=== PATIENT | female | born 1960 | race Caucasian/White ===

== ENCOUNTER → 2018-08-06 14:52 | Outpatient (CLI) | payer OTHER, SELFPAY ==
[2018-07-28 15:11] VITALS: BMI 43.0
--- NOTE | 2018-08-06 14:54 | CT_ITS ---
STUDY: CT ABDOMEN AND PELVIS WITH CONTRAST REASON FOR EXAM: Female, 57 years old. Umbilical hernia. RADIATION DOSAGE (If Supplied By Facility): CTDIvol = ( 17.07 ) mGy, DLP = ( 1324.88 ) mGycm TECHNIQUE: Transaxial images were obtained from the dome of the diaphragm to the symphysis pubis without oral contrast. 100CC IV/Oral Isovue 300 was administered. Sagittal and coronal images were reconstructed. Individualized dose optimization techniques were used for this CT. COMPARISON: None. FINDINGS: There is a 3.9 mm faint nodule with the right middle lobe. There is minimal atelectasis and/or scarring within the lingula and right middle lobe. The visualized portions of the heart are within normal limits. There is decreased attenuation of the liver consistent with steatosis. There is hepatomegaly. There are surgical clips in the gallbladder fossa consistent with a prior cholecystectomy. There is a well-circumscribed low-attenuation 1.2 cm rounded focus within the spleen. Normal pancreas. Normal bilateral adrenal glands. Normal right kidney. Normal left kidney. Normal visualized stomach. Normal small intestine. Normal colon. The appendix is visualized and appears normal. Normal abdominal aorta. Normal inferior vena cava. Normal retroperitoneum. Normal urinary bladder. There is a fat-containing ventral hernia within the right upper abdomen measuring 2.7 cm in the transverse dimension by 2.2 cm in the craniocaudal dimension. There is an additional smaller infraumbilical fat-containing hernia visualized as well. In addition, there is a small fat-containing umbilical hernia. There are mild diffuse degenerative changes of the visualized lumbar spine. CT/Abdomen/Pelvis WITH Contrast IMPRESSION: Fat-containing 2.7 x 2.2 cm right upper abdomen ventral hernia. There are additional smaller umbilical and infraumbilical fat-containing hernias. Fatty infiltration of the liver associated with hepatomegaly. Indeterminate 1.2 cm low-attenuation focus within the spleen which may reflect underlying hemangioma or cyst. Electronically Signed: Shawna Shea MD at 16:02 EDT Tel , Service support ,
== END ==
PROVIDERS: Family Provider Family Medicine; PCP Family Medicine; Referring Provider Surgery; Visit Provider Surgery
DX: K43.9 Ventral hernia without obstruction or gangrene (principal); K42.9 Umbilical hernia without obstruction or gangrene
CPT/HCPCS: 74177; Q9967

== ENCOUNTER → 2018-08-29 07:30 | Outpatient (CLI) | payer OTHER, SELFPAY ==
--- NOTE | 2018-08-29 07:30 | LES_PTH ---
PATIENT: ALETHA SUN LOC: [facility] U#:[id number] AGE/SX: 64/F ROOM: RE08/29/[address]: Dr. Solomon Salinas MD : 1960 BED: DIS: SPEC #: [id number] RECD: 08/31/18 07:22 STATUS: PHILIP BERENICE #: [id number] SHAHID: 08/29/18 07:[address]: Solomon Salinas DEPT: SURGICAL PATHOLOGY RECD BY: Adelfo Streeter ENTERED: 08/31/18 14:42 SP TYPE: Lesion OTHR DR: Dr. Kavitha Martinez, DO Tissues: Skin of buttock, NOS Procedures: Surgery Specimen Level IV HEADER OPERATION: Excision right buttock lesion PRE-OP DIAGNOSIS: Uncertain neoplasm buttock TISSUE SUBMITTED: Right buttock tissue MICROSCOPIC DIAGNOSIS Skin lesion of right buttocks, biopsy: Compound nevus with pigment incontinence. See comment. AM:cat 09/01/18 COMMENT The lesion appears to have been completely excised in the planes examined. Case has been reviewed in consultation with Dr. Pollock who concurs with the above diagnosis. IDC:GRECIA MICROSCOPIC DESCRIPTION Slides are reviewed. GROSS DESCRIPTION Received in fixative is one container labeled with the patient's name and designated right buttock. The specimen consists of a piece of antonio-white skin with underlying tissue measuring 2 x 1 cm and up to 1.3 cm in thickness. There is a brown oval lesion on the surface measuring 0.5 x 0.1 cm. The specimen is inked, serially sectioned and submitted entirely in two cassettes. Cassette 1 contains the tips of skin ellipse. / GRECIA:cat 08/31/18 TC:5 CPT: 02194
[2018-08-29 07:33] VITALS: BMI 43.0
== END ==
PROVIDERS: Family Provider Family Medicine; PCP Family Medicine; Referring Provider Surgery; Visit Provider Surgery
DX: D48.5 Neoplasm of uncertain behavior of skin (principal)
CPT/HCPCS: 88305

== ENCOUNTER 2019-02-22 10:54 | Observation (INO) | payer OTHER, SELFPAY ==
[2018-09-04 10:20] VITALS: BMI 43.0
[2019-02-15 13:56] VITALS: BMI 43.0
[2019-02-15 14:36] LABS: Hematocrit 44.1 % (37-47); Hemoglobin 14.4 g/dL (12.0-15.0); Mean Corp Hgb Conc 32.7 g/dL (32-36); Mean Corpuscular Hgb 31.6 pg (27.0-32.0); Mean Corpuscular Volume 96.9 fL (81-99); Mean Platelet Vol. 10.6 fl (6.2-12.0); Platelet Count 163 K/mm3 (150-450); RBC Distribution Width CV 12.9 % (11.6-14.6); RBC Distribution Width SD 45.9 fl (35.1-43.9); Red Blood Count 4.55 M/mm3 (4.2-5.4)
[2019-02-15 14:49] LABS: Anion Gap 4 (5-15); BUN 11 mg/dL (7-18); BUN/Creat Ratio 11.7 RATIO (10-20); Calcium,Total 8.5 mg/dL (8.5-10.1); Chloride 102 mmol/L (98-107); Creatinine, Serum 0.94 mg/dL (0.55-1.02); EST Glomerular Filtration Rate 65 mL/min (>60); Est Glom Filt Rate - Afr Amer 79 mL/min (>60); Glucose 326 mg/dL (74-106); Potassium 3.6 mmol/L (3.5-5.1); Sodium Level 138 mmol/L (136-145)
--- NOTE | 2019-02-16 08:26 | HP_ITS ---
ADDENDUM by Tatianna Barry PA-C on 02/16/19 at 0859 Addendum entered and electronically signed by Tatianna Barry PA-C 02/16/19 08:59: Patient had PAT labs and patient's glucose returned in the 300's. Patient's PCP office was contacted and patient will be evaluated by her PCP today to assist with correcting her glucose today. At this time we will continue with the surgery as planned. It is a possibility that the surgery may be canceled if her glucose is not well controlled. Will need to repeat glucose lab on . Intake Chief Complaint: excision right buttock lesion/ discuss CT Allergies oxycodone [From Percocet] Adverse Reaction (Verified 02/15/19 14:00) Nausea Medications atorvastatin 10 mg tablet 10 mg PO DAILY 05/09/18 [History Confirmed 02/15/19] hydrochlorothiazide 12.5 mg capsule 12.5 mg PO DAILY 05/09/18 [History Confirmed 02/15/19] multivit with dhxekeib-sedc-LU-lutein 8 mg iron-400 mcg-300 mcg tablet 1 tab PO DAILY 05/09/18 [History Confirmed 02/15/19] ramipril 10 mg capsule 10 mg PO DAILY 05/09/18 [History Confirmed 02/15/19] sertraline 50 mg tablet 50 mg PO DAILY 05/09/18 [History Confirmed 02/15/19] metformin 1,000 mg tablet 1,000 mg PO BID 07/28/18 [History Confirmed 02/15/19] pioglitazone 45 mg tablet 45 mg PO DAILY 07/28/18 [History Confirmed 02/15/19] Albuterol Inhaler [Ventolin Hfa (SP)] 1 - 2 puff INHALATION Q6H PRN PRN 02/15/19 [History Confirmed 02/15/19] doxycycline hyclate 100 mg capsule 100 mg PO BID cap 02/15/19 [History Confirmed 02/15/19] glipizide 10 mg tablet 10 mg PO ONCE tab 02/15/19 [History Confirmed 02/15/19] Assessment & Plan Problems 1. Incisional hernia, without obstruction or gangrene K43.2 2. Recurrent incisional hernia with incarceration K43.0 Plan - GALDINO Pat Dr. will plan to perform an open incisional umbilical hernia repair with mesh. Possible conversion to laparoscopic approach for recurrent incarcerated ventral incisional hernia in right upper quadrant repair with mesh. Procedure details, risks and benefits have been reviewed with the patient. Patient has had the opportunity to ask and have questions answered. Patient verbally understands and agrees with the plan. 02/16/19 0859 <Electronically signed by Tatianna stark PA-C> Date _ Tatianna Barry PA-C cc: Kavitha Martinez, DO ~* Signed Intake Vital Signs 02/15/19 Height 5 ft 7 in 02/15/19 Weight: 250 lb 02/15/19 BMI 39.1 02/15/19 BP 151/98 H 02/15/19 Blood Pressure Location Rt brachial 02/15/19 Position Sitting 02/15/19 Respiration 16 02/15/19 Pulse 101 H 02/15/19 Pulse Source Monitor 02/15/19 Temp 98.5 F 02/15/19 Temp Source Oral 02/15/19 Pulse Oximetry (%) 99 02/15/19 Oxygen Delivery Method room air Intake Visit Reasons: Update H/P Hernia Surgery RC 02/22 Cvir Tech Required: No Is patient in pain?: No Allergies oxycodone [From Percocet] Adverse Reaction (Verified 02/15/19 14:00) Nausea Medications atorvastatin 10 mg tablet 10 mg PO DAILY 05/09/18 [History Confirmed 02/15/19] hydrochlorothiazide 12.5 mg capsule 12.5 mg PO DAILY 05/09/18 [History Confirmed 02/15/19] multivit with rajrraqy-exqm-WG-lutein 8 mg iron-400 mcg-300 mcg tablet 1 tab PO DAILY 05/09/18 [History Confirmed 02/15/19] ramipril 10 mg capsule 10 mg PO DAILY 05/09/18 [History Confirmed 02/15/19] sertraline 50 mg tablet 50 mg PO DAILY 05/09/18 [History Confirmed 02/15/19] metformin 1,000 mg tablet 1,000 mg PO BID 07/28/18 [History Confirmed 02/15/19] pioglitazone 45 mg tablet 45 mg PO DAILY 07/28/18 [History Confirmed 02/15/19] Albuterol Inhaler [Ventolin Hfa (SP)] 1 - 2 puff INHALATION Q6H PRN PRN 02/15/19 [History Confirmed 02/15/19] doxycycline hyclate 100 mg capsule 100 mg PO BID cap 02/15/19 [History Confirmed 02/15/19] glipizide 10 mg tablet 10 mg PO ONCE tab 02/15/19 [History Confirmed 02/15/19] PFSH Medical History Morbid obesity (Acute) Nevus (Acute) Herpes zoster (Acute) Recurrent incisional hernia with incarceration (Acute) Arthritis (Acute) Depression with anxiety (Acute) Diabetes (Acute) Diarrhea (Acute) Difficulty balancing (Acute) Fatigue (Acute) Headache (Acute) Incisional hernia (Acute) Knee pain (Acute) Shortness of breath (Acute) Shoulder pain (Acute) history of heel spurs (Acute) unexplained bruising (Acute) Chronic neck and back pain (Chronic) Hypertension (Chronic) Surgical History History of delivery (Acute) History of cholecystectomy (Acute) History of endometrial ablation (Acute) History of tubal ligation (Acute) Family History Mother Diabetes Father Heart disease Social History (Updated 02/16/19 @ 08:38 by Tatianna Barry PA-C) Smoking Status: Never smoker alcohol intake: never substance use type: does not use HPI HPI HPI: ALETHA SUN, is a 58 F who presents to the office today for HPI HPI Surgical H&P: Yes HPI: ALETHA SUN, is a 58 F who presents to the office today for an update history and physical. Patient notes she has had a recent sinus infection and was treated with doxycycline for 7 days. She denies recent hospitalization. She denies nausea, vomiting or schneider in bowel habits. She denies previous cardiac history or pulmonary history. She notes nausea after anesthesia. Patient notes intermittent pain with hernias. 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 Patient's previous history per Dr. Salinas: ALETHA SUN, is a 58 F who presents to the office today for surgical follow-up regarding treatment for herpes zoster and excision of a deeply pigmented skin lesion right posterior buttock and review of her CT scan for recurrent right upper quadrant incisional hernia with incarceration and a umbilical hernia. My previous office notes reflect the previous history HPI: ALETHA SUN, is a 57 F who presents to the office today for surgical consultation regarding what is suspected to be of recurrent right upper quadrant incisional hernia. The patient states that 1993 she had a lap scopic cholecystectomy. At some time subsequent to that in the epigastric right upper quadrant area she developed a hernia. She stated that perhaps in the year 1999 Dr. Alea Turner performed to repair this and the patient remembers that mesh was utilized. 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 She states that she recognized a bulge for years ago. But more recently now she with lifting and straining she has been having a burning type of pain. She states that a couple years ago when she was eating food she could sense that food was passing through this area. She did have a recent ultrasound of that area performed at [facility]. This suggested abdominal wall fat-containing hernia in the area of concern. That test was performed June 26, 2018. Body weight is 262 pounds. BMI is 43. [facility] [address] [place] [address] Abdomen/Pelvis WITH Contrast MR#: [id number]:[id number] Name: ALETHA SUN ARep #:[id number] : 1960F 57 From: Shawna Shea MD PCP:Kavitha Martinez, DO Status:REG CLI Study:Abdomen/Pelvis WITH Contrast Date of Exam:08/06/18 Exam#[id number] Ordering Dr: Solomon Salinas MD STUDY: CT ABDOMEN AND PELVIS WITH CONTRAST REASON FOR EXAM: Female, 57 years old. Umbilical hernia. RADIATION DOSAGE (If Supplied By Facility): CTDIvol = ( 17.07 ) mGy, DLP = ( 1324.88 ) mGycm TECHNIQUE: Transaxial images were obtained from the dome of the diaphragm to the symphysis pubis without oral contrast. 100CC IV/Oral Isovue 300 was administered. Sagittal and coronal images were reconstructed. Individualized dose optimization techniques were used for this CT. COMPARISON: None. FINDINGS: There is a 3.9 mm faint nodule with the right middle lobe. There is minimal atelectasis and/or scarring within the lingula and right middle lobe. The visualized portions of the heart are within normal limits. There is decreased attenuation of the liver consistent with steatosis. There is hepatomegaly. There are surgical clips in the gallbladder fossa consistent with a prior cholecystectomy. There is a well-circumscribed low-attenuation 1.2 cm rounded focus within the spleen. Normal pancreas. Normal bilateral adrenal glands. Normal right kidney. Normal left kidney. Normal visualized stomach. Normal small intestine. Normal colon. The appendix is visualized and appears normal. Normal abdominal aorta. Normal inferior vena cava. Normal retroperitoneum. Normal urinary bladder. There is a fat-containing ventral hernia within the right upper abdomen measuring 2.7 cm in the transverse dimension by 2.2 cm in the craniocaudal dimension. There is an additional smaller infraumbilical fat-containing hernia visualized as well. In addition, there is a small fat-containing umbilical hernia. There are mild diffuse degenerative changes of the visualized lumbar spine. CT/Abdomen/Pelvis WITH Contrast IMPRESSION: Fat-containing 2.7 x 2.2 cm right upper abdomen ventral hernia. There are additional smaller umbilical and infraumbilical fat-containing hernias. Fatty infiltration of the liver associated with hepatomegaly. Indeterminate 1.2 cm low-attenuation focus within the spleen which may reflect underlying hemangioma or cyst. Electronically Signed: Shawna Shea MD at 16:02 EDT Tel , Service support , CC: Kavitha Martinez DO; Solomon Salinas MD ~ Community Planner: ADARSH General General: Yes weight change and fatigue; no appetite, colon cancer, breast cancer or weakness HEENT HEENT: No difficulty swallowing, eye injury, eye surgery, swollen glands or hoarseness Endo Endocrine: Yes diabetes mellitus; no thyroid disease, thyroid cancer, Hair loss, heat intolerance or cold intolerance Skin Skin: Yes rash; no changing moles Breast Breast: No left breast lump, right breast lump, nipple discharge, breast pain, abnormal mammogram, abnormal US or breast enlargement Musc Musculoskeletal: Yes arthritis; no back problems, rheumatoid arthritis, gout or joint pain Cardio Cardiovascular: Yes high blood pressure; no murmur, pacemaker, heart disease, atrial fibrillation, heart attack, heart stent, palpitations, shortness of breat with exertion or chest pain Psych Psychiatric: Yes depression and anxiety; no hearing voices Resp Respiratory: No shortness of breath, No sleep apnea, No cough, No COPD, No asthma, No emphysema, No wheezing Gastro Gastrointestinal: No abdominal pain, No nausea or vomiting, Yes diarrhea, No constipation, No blood in stool, No acid reflux, No hemorrhoids, No ulcers, No gallbladder problem, No black,tarry stools Gilberto Hematologic: No blood thinners, No blood disorders, No bleeding, No anemia, No blood clots Neuro Neurologic: No weakness Exam Const General: cooperative, healthy appearing, comfortable, no acute distress Nutritional Appearance: obese HENMT Head: normal to inspection Eyes General: appearance normal, both eyes and all related structures Neck Neck: normal visual inspection Neck mass: No Chest Breast Palpation: No nipple discharge Resp Effort & Inspection: normal respiratory effort Auscultation: clear to auscultation bilaterally Cardio Rate: regular rate Rhythm: regular rhythm Heart Sounds: no murmurs GI Inspection: normal to inspection Palpation: soft, hernia (right upper quadrant and umbilical) Auscultation: normal bowel sounds Skin General: no rashes or lesions noted Neuro General: no focal motor deficits, CN's II-XI intact bilaterally Extrem General: normal to inspection Psych Appearance: grossly normal Affect: normal affect Assessment & Plan Problems 1. Incisional hernia, without obstruction or gangrene K43.2 2. Recurrent incisional hernia with incarceration K43.[address] Salinas will plan to perform an open incisional umbilical hernia repair with mesh. Possible conversion to laparoscopic approach for recurrent incarcerated ventral incisional hernia in right upper quadrant repair with mesh. Procedure details, risks and benefits have been reviewed with the patient. Patient has had the opportunity to ask and have questions answered. Patient verbally understands and agrees with the plan. Coding Level of Care Code No Charge Diagnoses Incisional hernia, without obstruction or gangrene K43.2 ??Obstruction and gangrene presence: without obstruction or gangrene Recurrent incisional hernia with incarceration K43.0 Comment Update H&P 02/16/19 0838 <Electronically signed by Tatianna stark PA-C> Date _ Tatianna Barry PA-C
--- NOTE | 2019-02-19 08:22 | EKG12_ITS ---
Test Reason : PREOP Blood Pressure : / mmHG Vent. Rate : 096 BPM Atrial Rate : 096 BPM P-R Int : 148 ms QRS Dur : 084 ms QT Int : 364 ms P-R-T Axes : 046 020 020 degrees QTc Int : 459 ms Normal sinus rhythm Normal ECG Confirmed by MICHELLE ORTEGA ([id number]), production editor YOCASTA PREEZ ([id number] on 02/23/2019 2:56:16 PM Referred By: Solomon Salinas Confirmed By:MICHELLE ORTEGA
[2019-02-19 09:22] LABS: Glucose 171 mg/dL (74-106)
[2019-02-22] VITALS (14 sets, daily range): BP systolic 100–147; BP diastolic 65–93; PULSE 76–99; RESP 16–18; TEMP 35.7–36.8; O2SAT 95–99; BMI 38.7
--- NOTE | 2019-02-22 05:58 | PCM.HP.BLA ---
Problem List (1) Recurrent incisional hernia with incarceration Status: Acute History and Physical Date of Admission: 02/22/19 MR#: [id number] Acct: [id number] Name: ALETHA SUN Rep #: [id number] : 1960 Provider: Tatianna Barry PA-C Age/Sex: 58/F Location: [facility] Status: Signed with Addenda ADDENDUM by Tatianna Barry PA-C on 02/16/19 at 0859 Addendum entered and electronically signed by Tatianna Barry PA-C 02/16/19 08:59: Patient had PAT labs and patient's glucose returned in the 300's. Patient's PCP office was contacted and patient will be evaluated by her PCP today to assist with correcting her glucose today. At this time we will continue with the surgery as planned. It is a possibility that the surgery may be canceled if her glucose is not well controlled. Will need to repeat glucose lab on . Intake Chief Complaint: excision right buttock lesion/ discuss CT Allergies oxycodone [From Percocet] Adverse Reaction (Verified 02/15/19 14:00) Nausea Medications atorvastatin 10 mg tablet 10 mg PO DAILY 05/09/18 [History Confirmed 02/15/19] hydrochlorothiazide 12.5 mg capsule 12.5 mg PO DAILY 05/09/18 [History Confirmed 02/15/19] multivit with cehqaetc-zgab-TV-lutein 8 mg iron-400 mcg-300 mcg tablet 1 tab PO DAILY 05/09/18 [History Confirmed 02/15/19] ramipril 10 mg capsule 10 mg PO DAILY 05/09/18 [History Confirmed 02/15/19] sertraline 50 mg tablet 50 mg PO DAILY 05/09/18 [History Confirmed 02/15/19] metformin 1,000 mg tablet 1,000 mg PO BID 07/28/18 [History Confirmed 02/15/19] pioglitazone 45 mg tablet 45 mg PO DAILY 07/28/18 [History Confirmed 02/15/19] Albuterol Inhaler [Ventolin Hfa (SP)] 1 - 2 puff INHALATION Q6H PRN PRN 02/15/19 [History Confirmed 02/15/19] doxycycline hyclate 100 mg capsule 100 mg PO BID cap 02/15/19 [History Confirmed 02/15/19] glipizide 10 mg tablet 10 mg PO ONCE tab 02/15/19 [History Confirmed 02/15/19] Assessment & Plan Problems 1. Incisional hernia, without obstruction or gangrene K43.2 2. Recurrent incisional hernia with incarceration K43.0 Plan - GALDINO Pat Dr. will plan to perform an open incisional umbilical hernia repair with mesh. Possible conversion to laparoscopic approach for recurrent incarcerated ventral incisional hernia in right upper quadrant repair with mesh. Procedure details, risks and benefits have been reviewed with the patient. Patient has had the opportunity to ask and have questions answered. Patient verbally understands and agrees with the plan. 02/16/19 0859 <Electronically signed by Tatianna Barry PA-C> Date Tatianna Barry PA-C cc: Kavitha Martinez, DO ~* Signed Intake Vital Signs 02/15/19 Height 5 ft 7 in 02/15/19 Weight: 250 lb 02/15/19 BMI 39.1 02/15/19 BP 151/98 H 02/15/19 Blood Pressure Location Rt brachial 02/15/19 Position Sitting 02/15/19 Respiration 16 02/15/19 Pulse 101 H 02/15/19 Pulse Source Monitor 02/15/19 Temp 98.5 F 02/15/19 Temp Source Oral 02/15/19 Pulse Oximetry (%) 99 02/15/19 Oxygen Delivery Method room air Intake Visit Reasons: Update H/P Hernia Surgery 02/22 Log Getter Required: No Is patient in pain?: No Allergies oxycodone [From Percocet] Adverse Reaction (Verified 02/15/19 14:00) Nausea Medications atorvastatin 10 mg tablet 10 mg PO DAILY 05/09/18 [History Confirmed 02/15/19] hydrochlorothiazide 12.5 mg capsule 12.5 mg PO DAILY 05/09/18 [History Confirmed 02/15/19] multivit with sjmljfhw-tqud-WJ-lutein 8 mg iron-400 mcg-300 mcg tablet 1 tab PO DAILY 05/09/18 [History Confirmed 02/15/19] ramipril 10 mg capsule 10 mg PO DAILY 05/09/18 [History Confirmed 02/15/19] sertraline 50 mg tablet 50 mg PO DAILY 05/09/18 [History Confirmed 02/15/19] metformin 1,000 mg tablet 1,000 mg PO BID 07/28/18 [History Confirmed 02/15/19] pioglitazone 45 mg tablet 45 mg PO DAILY 07/28/18 [History Confirmed 02/15/19] Albuterol Inhaler [Ventolin Hfa (SP)] 1 - 2 puff INHALATION Q6H PRN PRN 02/15/19 [History Confirmed 02/15/19] doxycycline hyclate 100 mg capsule 100 mg PO BID cap 02/15/19 [History Confirmed 02/15/19] glipizide 10 mg tablet 10 mg PO ONCE tab 02/15/19 [History Confirmed 02/15/19] PFSH Medical History Morbid obesity (Acute) Nevus (Acute) Herpes zoster (Acute) Recurrent incisional hernia with incarceration (Acute) Arthritis (Acute) Depression with anxiety (Acute) Diabetes (Acute) Diarrhea (Acute) Difficulty balancing (Acute) Fatigue (Acute) Headache (Acute) Incisional hernia (Acute) Knee pain (Acute) Shortness of breath (Acute) Shoulder pain (Acute) history of heel spurs (Acute) unexplained bruising (Acute) Chronic neck and back pain (Chronic) Hypertension (Chronic) Surgical History History of delivery (Acute) History of cholecystectomy (Acute) History of endometrial ablation (Acute) History of tubal ligation (Acute) Family History Mother Diabetes Father Heart disease Social History (Updated 02/16/19 @ 08:38 by Tatianna Barry PA-C) Smoking Status: Never smoker alcohol intake: never substance use type: does not use HPI HPI HPI: ALETHA SUN is a 58 F who presents to the office today for HPI HPI Surgical H&P: Yes HPI: ALETHA SUN is a 58 F who presents to the office today for an update history and physical. Patient notes she has had a recent sinus infection and was treated with doxycycline for 7 days. She denies recent hospitalization. She denies nausea, vomiting or schneider in bowel habits. She denies previous cardiac history or pulmonary history. She notes nausea after anesthesia. Patient notes intermittent pain with hernias. 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 Patient's previous history per Dr. Salinas: ALETHA SUN, is a 58 F who presents to the office today for surgical follow-up regarding treatment for herpes zoster and excision of a deeply pigmented skin lesion right posterior buttock and review of her CT scan for recurrent right upper quadrant incisional hernia with incarceration and a umbilical hernia. My previous office notes reflect the previous history HPI: ALETHA SUN, is a 57 F who presents to the office today for surgical consultation regarding what is suspected to be of recurrent right upper quadrant incisional hernia. The patient states that 1993 she had a lap scopic cholecystectomy. At some time subsequent to that in the epigastric right upper quadrant area she developed a hernia. She stated that perhaps in the year 1999 Dr. Alea Turner performed to repair this and the patient remembers that mesh was utilized. 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 She states that she recognized a bulge for years ago. But more recently now she with lifting and straining she has been having a burning type of pain. She states that a couple years ago when she was eating food she could sense that food was passing through this area. She did have a recent ultrasound of that area performed at [facility]. This suggested abdominal wall fat-containing hernia in the area of concern. That test was performed June 26, 2018. Body weight is 262 pounds. BMI is 43. [facility] Imaging Services [address] [place] [id number] Abdomen/Pelvis WITH Contrast MR#: [id number]:[id number] Name: ALETHA SUN ARep #:[id number] : 1960F 57 From: Shawna Shea MD PCP:Kavitha Martinez, Status:REG CLI Study:Abdomen/Pelvis WITH Contrast Date of Exam:08/06/18 Exam#[id number] Ordering Dr: Solomon Salinas MD STUDY: CT ABDOMEN AND PELVIS WITH CONTRAST REASON FOR EXAM: Female, 57 years old. Umbilical hernia. RADIATION DOSAGE (If Supplied By Facility): CTDIvol = ( 17.07 ) mGy, DLP = ( 1324.88 ) mGycm TECHNIQUE: Transaxial images were obtained from the dome of the diaphragm to the symphysis pubis without oral contrast. 100CC IV/Oral Isovue 300 was administered. Sagittal and coronal images were reconstructed. Individualized dose optimization techniques were used for this CT. COMPARISON: None. FINDINGS: There is a 3.9 mm faint nodule with the right middle lobe. There is minimal atelectasis and/or scarring within the lingula and right middle lobe. The visualized portions of the heart are within normal limits. There is decreased attenuation of the liver consistent with steatosis. There is hepatomegaly. There are surgical clips in the gallbladder fossa consistent with a prior cholecystectomy. There is a well-circumscribed low-attenuation 1.2 cm rounded focus within the spleen. Normal pancreas. Normal bilateral adrenal glands. Normal right kidney. Normal left kidney. Normal visualized stomach. Normal small intestine. Normal colon. The appendix is visualized and appears normal. Normal abdominal aorta. Normal inferior vena cava. Normal retroperitoneum. Normal urinary bladder. There is a fat-containing ventral hernia within the right upper abdomen measuring 2.7 cm in the transverse dimension by 2.2 cm in the craniocaudal dimension. There is an additional smaller infraumbilical fat-containing hernia visualized as well. In addition, there is a small fat-containing umbilical hernia. There are mild diffuse degenerative changes of the visualized lumbar spine. CT/Abdomen/Pelvis WITH Contrast IMPRESSION: Fat-containing 2.7 x 2.2 cm right upper abdomen ventral hernia. There are additional smaller umbilical and infraumbilical fat-containing hernias. Fatty infiltration of the liver associated with hepatomegaly. Indeterminate 1.2 cm low-attenuation focus within the spleen which may reflect underlying hemangioma or cyst. Electronically Signed: Shawna Shea MD at 16:02 EDT Tel , Service support , CC: Kavitha Martinez DO; Solomon Salinas MD ~ Science Technician: ADARSH General General: Yes weight change and fatigue; no appetite, colon cancer, breast cancer or weakness HEENT HEENT: No difficulty swallowing, eye injury, eye surgery, swollen glands or hoarseness Endo Endocrine: Yes diabetes mellitus; no thyroid disease, thyroid cancer, Hair loss, heat intolerance or cold intolerance Skin Skin: Yes rash; no changing moles Breast Breast: No left breast lump, right breast lump, nipple discharge, breast pain, abnormal mammogram, abnormal US or breast enlargement Musc Musculoskeletal: Yes arthritis; no back problems, rheumatoid arthritis, gout or joint pain Cardio Cardiovascular: Yes high blood pressure; no murmur, pacemaker, heart disease, atrial fibrillation, heart attack, heart stent, palpitations, shortness of breat with exertion or chest pain Psych Psychiatric: Yes depression and anxiety; no hearing voices Resp Respiratory: No shortness of breath, No sleep apnea, No cough, No COPD, No asthma, No emphysema, No wheezing Gastro Gastrointestinal: No abdominal pain, No nausea or vomiting, Yes diarrhea, No constipation, No blood in stool, No acid reflux, No hemorrhoids, No ulcers, No gallbladder problem, No black,tarry stools Gilberto Hematologic: No blood thinners, No blood disorders, No bleeding, No anemia, No blood clots Neuro Neurologic: No weakness Exam Const General: cooperative, healthy appearing, comfortable, no acute distress Nutritional Appearance: obese [facility] Head: normal to inspection Eyes General: appearance normal, both eyes and all related structures Neck Neck: normal visual inspection Neck mass: No Chest Breast Palpation: No nipple discharge Resp Effort & Inspection: normal respiratory effort Auscultation: clear to auscultation bilaterally Cardio Rate: regular rate Rhythm: regular rhythm Heart Sounds: no murmurs GI Inspection: normal to inspection Palpation: soft, hernia (right upper quadrant and umbilical) Auscultation: normal bowel sounds Skin General: no rashes or lesions noted Neuro General: no focal motor deficits, CN's II-XI intact bilaterally Extrem General: normal to inspection Psych Appearance: grossly normal Affect: normal affect Assessment & Plan Problems 1. Incisional hernia, without obstruction or gangrene K43.2 2. Recurrent incisional hernia with incarceration K43.[address] Salinas will plan to perform an open incisional umbilical hernia repair with mesh. Possible conversion to laparoscopic approach for recurrent incarcerated ventral incisional hernia in right upper quadrant repair with mesh. Procedure details, risks and benefits have been reviewed with the patient. Patient has had the opportunity to ask and have questions answered. Patient verbally understands and agrees with the plan. Coding Level of Care Code No Charge Diagnoses Incisional hernia, without obstruction or gangrene K43.2 ??Obstruction and gangrene presence: without obstruction or gangrene Recurrent incisional hernia with incarceration K43.0 Comment Update H&P 02/16/19 0838 <Electronically signed by Tatianna Barry PA-C> Date Tatianna Barry PA-C Cosigner Signature: Date (if applicable) CC: Kavitha Martinez, DO ~ The patient has been seen by her primary care physician. Intensive management of glucose was encouraged. Blood sugar obtained 2 days ago was 170. The patient was deemed to be stable to proceed with planned ventral incisional hernia repairs. We will proceed as noted. Solomon Salinas M.D., F.A.C.S.
[2019-02-22 06:21] LABS: Bedside Glucose 170 mg/dL (70-110)
[2019-02-22] MEDS: Lactated Ringers 1,000 ML 30 ML IV (06:35)
--- NOTE | 2019-02-22 07:03 | DCINST_ITS ---
Discharge Diet: Light diet - advance as tolerated - if you have questions about your diet instructions, please talk to you doctor. Discharge Activity: May Not Drive - for 1 week or while taking narcotic pain medicine. May shower in (days): 1 Lifting Restrictions: 10 pounds Call your doctor if your incision/area has: Continuous Slow Oozing, Sudden Increased Bleeding, Increased Pain/ Swelling, Increased Redness, Foul Smelling Discharge Call your doctor if you observe: Fever of 101 or Higher Suture Line Care: Avoid Pulling/Pushing, Avoid Pinching/Bending Additional Dressing/Incision Instructions:: Change or remove dressing in 4 days. Leave steri-strips in place for 1 week. Allergies/Adverse Reactions: Allergies oxycodone [From Percocet] Adverse Reaction (Verified 02/22/19 06:41) Nausea Medications to take at Discharge atorvastatin 10 mg tablet 10 mg PO DAILY 05/09/18 hydrochlorothiazide 12.5 mg capsule 12.5 mg PO DAILY 05/09/18 multivit with dtmipywi-lraq-FW-lutein 8 mg iron-400 mcg-300 mcg tablet 1 tab PO DAILY 05/09/18 ramipril 10 mg capsule 10 mg PO DAILY 05/09/18 sertraline 50 mg tablet 50 mg PO DAILY 05/09/18 metformin 1,000 mg tablet 1,000 mg PO BID 07/28/18 pioglitazone 45 mg tablet 45 mg PO DAILY 07/28/18 Albuterol Inhaler [Ventolin Hfa (SP)] 1 - 2 puff INHALATION Q6H PRN PRN 02/15/19 doxycycline hyclate 100 mg capsule 100 mg PO BID cap 02/15/19 glipizide 10 mg tablet 10 mg PO ONCE tab 02/15/19 Orders to be completed after discharge: 12 Lead EKG [CVS] Time Frame: 02/15/19, Facility: [facility], Location: Cardiovascular Services Basic Metabolic Profile (BMP) Time Frame: 02/15/19, Facility: [facility], Location: Laboratory CBC-Complete Blood Cnt No Diff Time Frame: 02/15/19, Facility: [facility], Location: Laboratory Primary Care Physician: Dona Brewer NP-C [Primary Care Provider] - Test Results: Test results from this visit will be discussed in further detail at your follow- up appointment, if applicable. Please Follow Up With: Solomon Salinas MD - [phone] When: Call to make an appointment to be seen in about 10 days.
[2019-02-22] MEDS: Cefazolin 2 GM in 0.9% Normal Saline 100 ML IV ×2 (07:05→15:22)
--- NOTE | 2019-02-22 07:15 | HERN_PTH ---
PATIENT: ALETHA SUN LOC: MS3 U#:[id number] AGE/SX: 58/F ROOM: [facility] RE02/22/[address]: Dr. Solomon Salinas MD : 1960 BED: 1 DIS: 02/23/2019 SPEC #: [id number] RECD: 02/22/19 13:53 STATUS: PHILIP RE #: [id number] SHAHID: 02/22/19 07:[address]: Solomon Salinas DEPT: SURGICAL PATHOLOGY RECD BY: Adelfo Streeter ENTERED: 02/22/19 14:20 SP TYPE: Hernia OTHR DR: Dona Brewer, BEADING INSTALLERTammy Tissues: A - HERNIA B - Liver, NOS Procedures: PAS with Diastase (control) Trichrome (control) Special Stain Group II PAS Stain (control) Surgery Specimen Level II Surgery Specimen Level V Retic (control) Iron Stain (control) HEADER OPERATION: Laparoscopic ventral incisional hernia repair with mesh PRE-OP DIAGNOSIS: Incisional hernia without obstruction or gangrene K43.2, recurrent incisional hernia with incarceration K43.0 TISSUE SUBMITTED: A. Hernia sac and contents, B. Micha-Cut liver biopsy MICROSCOPIC DIAGNOSIS A. Hernia sac and contents, excision: Fibrofatty tissue consistent with hernia sac and contents. B. Liver, Micha-Cut biopsy: Hepatic steatosis with cirrhosis. See comment. AM:cat 02/23/19 COMMENT There is prominent microvesicular and macrovesicular hepatic steatosis present in the biopsy. Reticulin stain with matched control reveals a normal lymphatic architecture. Trichrome stain with matched control reveals broad band fibrosis and bridging consistent with cirrhosis. Iron stain with matched control does not reveal intraparenchymal deposition of iron. PAS with and without diastase does not reveal accumulation of abnormal proteins. Clinical correlation is suggested. Case has been reviewed in consultation with Dr. Pollock who concurs with the above diagnosis. IDC:GRECIA MICROSCOPIC DESCRIPTION Slides are reviewed. GROSS DESCRIPTION A - Received in fixative is one container labeled with the patient's name and designated hernia sac and contents. The specimen consists of two irregular fragments of yellow-pink soft tissue that in aggregate measure 3 x 2.5 x 0.3 cm. The specimen is totally submitted in one cassette. B - Received in fixative is one container labeled with the patient's name and designated Micha-Cut liver biopsy. The specimen consists of two elongated fragments of light antonio soft tissue ranging in size from 0.5 to 0.7 cm and each with a diameter of 0.1 cm. The specimen is totally submitted in one cassette. / AM:cat 02/22/19 TC:3 CPT: 07533, 12334, 55175 x5
[2019-02-22] MEDS: Bupivacaine 0.25% 30 ML Vial (10:00)
[2019-02-22] MEDS: BUPIVACAINE LIPOSOME/PF 20 ML VIAL OPERA.SITE (10:00)
[2019-02-22] MEDS: 0.9% Normal Saline (Pres. free 10 ML Vial (10:00)
--- NOTE | 2019-02-22 10:40 | PCM.OPRPT ---
Problem List (1) Recurrent incisional hernia with incarceration Status: Acute Report of Operation Date of Procedure: 02/22/19 Pre-Operative Diagnosis: Multiple ventral incisional hernias with recurrent incarcerated hernia in the epigastrium Post-Operative Diagnosis: Incarcerated recurrent epigastric incisional hernia. Incisional umbilical hernia. Suprapubic ventral incisional hernias x2. Suspected BALL Surgery/Procedure Performed:: Laparoscopic ventral incisional hernia repairs with placement of 2 pieces of ventral light mesh. Bilateral TAP block. Micha-Cut needle core right liver biopsy. 15.2 x 25.4 cm REF [id number],Lot [id number], Expires 08/21/20. 17.8 x 22.9cm FEF [id number], Lot [id number], Expires 03/23/20. Secure strap x 4: Lot [id number], expires 12/2019 Description of Surgical Findings:: Timeout and informed consent was obtained. 58-year-old female was taken the operating placement table underwent general endotracheal intubation anesthesia. Ancef 2 g given intravenously preoperatively. The abdomen sterilely prepped draped. 2 pieces of Ioban required because of the patient's obesity. 20 cc of Exparel mixed with 60 cc of 0.25% Marcaine and diluted 200 cc was used as a tap block. Skin sites were pre-anesthetized. A vertical incision was made at the umbilicus immediately an incisional hernia at that site was encountered. Holding sutures of 0 Vicryl placed to help elevate and assist with dissection through the peritoneum. I placed العلي catheter. Insufflated the abdomen CO2 to a pressure of 10 mmHg pressure. 5 [place] 30 degree scope was inserted. Inspection revealed that there was the incisional hernia at the umbilicus there was an incarcerated hernia in the epigastrium with a significant amount of omentum within. And then they were 2 additional incisional hernias in the suprapubic location. I dressed the adhesions in the epigastric area first. Two 5 mm ports were placed in both the left and the right abdomen under direct visualization. The omental tissue was grasped and carefully dissected free electrocautery was used for hemostasis and hemo-lock clips were used as well. Tedious and gradually all of the hernia contents were dissected free. I then dissected the falciform ligament superiorly to have a place to seat the mesh. I then inspected the suprapubic area and was able to incised the peritoneum dissected free found to defects related to incisions carried that down distally down to the pubic tubercle taking care not to injure the urinary bladder. I then utilized a 15.2 x 25.4 cm mesh. I made a slight slight tongue with the mesh that would fit down underneath the pubic tubercle I placed 4 corner sutures of 2-0 Prolene placed that within the abdomen took the time of the mesh down to the pubic tubercle and secured there with the 2-0 Prolene parachute suture I then pulled up the parachutes only to realize that the mesh was not long enough to cover the epigastric defect in addition to the total of 4 defects. So I finished securing the for parachute stitches I used secure strap to secure the inferior and lateral margins of that mesh. I then selected the second mesh which was 17.8 x 22.9 cm. Again I placed 4 corner sutures of 2-0 Prolene placed but that within the abdomen unfurled it. I placed the apical suture set it was well up the epigastrium tucked underneath the dissected falciform ligament. Having achieved that I used secure strap to finish securing the first piece of mesh. I then used a grainy needle and stab incisions to elevate the second piece of mesh partly covering the first piece of mesh but securely covering the defect area. I used the secure strap around the periphery to secure that. I then also used secure strap centrally to help complete the mesh oblate space and space for seroma formation. At the completion the 2 mesh over laid each other stemming from the pubic tubercle all the way up to the xiphoid. There is excellent coverage of all 4 hernial defects. The mesh was copiously irrigated. The greater omentum was inspected was noted to be intact. There was absolutely no bowel injury. I then placed the patient in reverse Trendelenburg position performed under laparoscopic control bilateral tap block with a solution. This was technically challenging because of the patient's obesity. Having achieved that trochars removed under visualization the abdomen was allowed to deflate the CO2. The fascia at the umbilical site was closed with a running 0 Prolene. Is of note that under laparoscopic control bilateral tap block was performed laparoscopically utilizing the solution as mentioned above. That appeared to proceed well in the local was instilled lateral to port sites and mesh securing sites. It is of additional note that the liver appeared to be nodular and possibly cirrhotic. Findings were suspicious for non-alcoholic steatohepatitis. A stab incision was made in the right upper quadrant and a Micha-Cut needle was inserted into the right lobe of the liver and a small core of liver was achieved. Hemostasis was obtained with electrocautery. The specimen was immediately submitted in formalin for analysis. Sponge and instrument and needle counts reported the surgeon . Blood loss minimal. Drains none. Specimen included the umbilical site hernia contents and sac and the needle core right lobe liver biopsy This was a very challenging procedure that required excessive amount of time to complete at 3 hours. Solomon Salinas M.D., F.A.C.S. Type of Anesthesia:: General Anesthesiologist: Giselle Baca
[2019-02-22 11:31] LABS: Bedside Glucose 252 mg/dL (70-110)
[2019-02-22] MEDS: Insulin Lispro 100 UNIT/ML INSULN.PEN SC (11:43)
--- NOTE | 2019-02-22 12:46 | CON.PCM_ITS ---
Problem List (1) Morbid obesity Status: Chronic (2) Nevus Status: Chronic (3) Herpes zoster Status: Chronic Qualifiers: Herpes zoster complications: without complications Qualified Code(s): B02.9 - Zoster without complications (4) Incisional hernia Status: Acute Qualifiers: Obstruction and gangrene presence: without obstruction or gangrene Qualified Code(s): K43.2 - Incisional hernia without obstruction or gangrene; K43.91 - Incisional hernia, without obstruction or gangrene (5) Recurrent incisional hernia with incarceration Status: Acute Reason for Consult Date of Consultation: 02/22/19 Reason for Consultation: Postop medical management of medical comorbidities including hypertension diabetes History of Present Illness: The patient is a 58 year old F who was admitted by Dr. Salinas on account of multiple ventral incisional hernias with recurrent incarcerated hernia in the epigastrium. Patient underwent laparoscopic ventral incisional hernia repair with placement of 2 pieces of ventral light mesh. The hospitalist service was consulted postoperatively by Dr. Salinas to assist with management of patient medical comorbidities. Past Medical History Past Medical History (Chronic Problems): Chronic Problems (Last Reviewed 02/22/19 @ 14:49 by Carlos Moise MD) Morbid obesity (Chronic) Nevus (Chronic) Herpes zoster (Chronic) Medical History: Medical History (Last Reviewed 02/22/19 @ 14:49 by Carlos Moise MD) Morbid obesity (Chronic) E66.01 Nevus (Chronic) D22.9 Herpes zoster (Chronic) B02.9 Recurrent incisional hernia with incarceration (Acute) K43.0 Arthritis M19.90 Depression with anxiety F41.8 Diabetes E11.9 Diarrhea R19.7 Difficulty balancing R29.818 Fatigue R53.83 Headache R51 Incisional hernia K43.2 Knee pain M25.569 Shortness of breath R06.02 Shoulder pain M25.519 history of heel spurs unexplained bruising Chronic neck and back pain M54.2, M54.9, G89.29 Hypertension I10 Allergies oxycodone [From Percocet] Adverse Reaction (Verified 02/22/19 06:41) Nausea Home Medications: Ambulatory Orders Medication Instructions Recorded atorvastatin 10 mg tablet 10 mg PO DAILY 05/09/18 hydrochlorothiazide 12.5 mg capsule 12.5 mg PO DAILY 05/09/18 multivit with 1 tab PO DAILY 05/09/18 dknlddba-bjny-HL-lutein 8 mg iron-400 mcg-300 mcg tablet ramipril 10 mg capsule 10 mg PO DAILY 05/09/18 sertraline 50 mg tablet 50 mg PO DAILY 05/09/18 metformin 1,000 mg tablet 1,000 mg PO BID 07/28/18 pioglitazone 45 mg tablet 45 mg PO DAILY 07/28/18 Albuterol Inhaler [Ventolin Hfa 1 - 2 puff INHALATION Q6H PRN PRN 02/15/19 (SP)] doxycycline hyclate 100 mg capsule 100 mg PO BID cap 02/15/19 glipizide 10 mg tablet 10 mg PO ONCE tab 02/15/19 Surgical History: Surgical History (Last Reviewed 02/22/19 @ 14:49 by Carlos Moise MD) History of delivery Z98.891 History of cholecystectomy Z90.49 History of endometrial ablation Z98.890 History of tubal ligation Z98.51 Smoking Status: Never smoker Tobacco Use: Non-smoker - *Family History Maternal Family History: Family History (Last Reviewed 02/22/19 @ 14:49 by Carlos Moise MD) Mother Diabetes Father Heart disease Review of Systems Constitutional: Denies: Anorexia, Chills, Fever, Night Sweats, Weight Change HEENT: Denies: Head Aches, Sinus Congestion, Sinus Drainage Cardiovascular: Denies: Chest Pain, Orthopnea, Palpitations, Paroxysmal Noc. Dyspnea Respiratory: Denies: Cough, Shortness of breath at rest, Shortness of breath upon exertion, Sputum production Gastrointestinal: Reports: Abdominal Pain. Denies: Hematemesis, Hematochezia Genitourinary: Denies: Dysuria, Frequency, Hematuria, Urgency Musculoskeletal: Denies: Joint Pain, Joint Tenderness Skin: Denies: Rash Neurological: Denies: Focal weakness, Numbness, Tingling Psychiatric: Denies: Homicidal Ideations, Suicidal Ideations Hematologic/ Lymphatic: Denies: Easy Bruising, Easy Bleeding Objective: GENERAL: cooperative HEENT: Atraumatic; EYES; Anicteric, Normal Conjunctiva NECK; supple, normal thyroid, RESPIRATORY: Diminished to auscultation CARDIOVASCULAR: Regular S1 S2, GI: soft, normoactive bowel sounds, : No Renal angle tenderness; EXTREMITIES: No edema, no clubbing, MUSCULOSKELETAL: no muscle waisting NEURO: Awake; no lateralizing signs. SKIN: No Rash PSYCH; Flat affect - Physical Exam Vitals/I&O's: Vital Signs Temp Pulse Resp BP Pulse Ox 97.6 F L 77 18 110/80 97 02/22/19 11:02 02/22/19 12:15 02/22/19 12:15 02/22/19 12:15 02/22/19 12:15 Oxygen Flow Rate (L/min) 3 Oxygen Delivery Method Nasal Cannula Weight: 112 kg Body Mass Index (BMI) 38.7 Intake and Output for Last 24 Hours 02/20/19 02/21/19 02/22/19 23:59 23:59 23:59 Intake Total 110 / 110 Output Total 95 / 95 Balance Laboratory Results 02/22/19 06:13: POC Glucose 170 H 02/22/19 11:24: POC Glucose 252 H Current Medications Albuterol Sulfate (Ventolin Aerosols) 2.5 mg INHALATION Q4H PRN PRN Reason: SOB/WHEEZING Atorvastatin Calcium (Lipitor) 10 mg PO QHS [facility] Enoxaparin Sodium (Lovenox) 40 mg SC DAILY@0600 [facility] Glipizide (Glucotrol) 10 mg PO ONCE [facility] Hydrochlorothiazide () 12.5 mg PO DAILY [facility] Cefazolin Sodium 2 gm/ Sodium (Chloride) 110 mls @ 150 mls/hr IV X1 ONE Stop: 02/22/19 15:43 Lactated Ringer's () 1,000 mls @ 70 mls/hr IV .[id number] [facility] Ketorolac Tromethamine (Toradol) 15 mg IV Q6H PRN PRN PRN Reason: Pain Score 1-10/10 Metformin HCl (Glucophage) 1,000 mg PO BIDCM [facility] Morphine Sulfate () 2 - 4 mg IV Q2H PRN PRN PRN Reason: Pain Score 1-10/10 Morphine Sulfate () 2 - 4 mg IV Q2H PRN PRN PRN Reason: Pain Score 1-10/10 Non-Formulary Medication (Doxycycline Hyclate) 100 mg PO BID [facility] Ondansetron HCl (Zofran) 4 mg IV Q8H PRN PRN PRN Reason: NAUSEA Pioglitazone HCl (Actos) 45 mg PO DAILY [facility] Ramipril (Altace) 10 mg PO DAILY [facility] Sertraline HCl (Zoloft) 50 mg PO DAILY [facility] Assessment/Plan All Active Problems (Last Reviewed 02/22/19 @ 14:49 by Carlos Moise MD) Incisional hernia (Acute) Recurrent incisional hernia with incarceration (Acute) The patient is a 58 year old F who was admitted by Dr. Salinas on account of multiple ventral incisional hernias with recurrent incarcerated hernia in the epigastrium. Patient underwent laparoscopic ventral incisional hernia repair with placement of 2 pieces of ventral light mesh. The hospitalist service was consulted postoperatively by Dr. Salinas to assist with management of patient medical comorbidities. 1. Status post laparoscopic ventral incisional hernia repair with placement of 2 pieces of ventral light mesh ~ On account of multiple ventral incisional hernias with recurrent incarcerated hernia in the epigastrium Dr. Solomon Salinas on 02/22/2019 2. Hypertension ~ blood pressure controlled, home medications continued with dose adjustment as needed 3. Dyslipidemia ~patient is on statin therapy, continued at home dose 4. Diabetes mellitus type II ~Did continue patient oral hypoglycemic agents in addition to Accu-Cheks a.c. and at bedtime and covered with sliding scale insulin 5. Morbid obesity With BMI of 32 weight loss advised 6. DVT prophylaxis ~ on enoxaparin Active Medications Albuterol Sulfate (Ventolin Aerosols) 2.5 mg INHALATION Q4H PRN PRN Reason: SOB/WHEEZING Atorvastatin Calcium (Lipitor) 10 mg PO QHS [facility] Enoxaparin Sodium (Lovenox) 40 mg SC DAILY@0600 [facility] Glipizide (Glucotrol) 10 mg PO ONCE [facility] Hydrochlorothiazide () 12.5 mg PO DAILY [facility] Cefazolin Sodium 2 gm/ Sodium (Chloride) 110 mls @ 150 mls/hr IV X1 ONE Stop: 02/22/19 15:43 Lactated Ringer's () 1,000 mls @ 70 mls/hr IV .[id number] [facility] Last Admin: 02/22/19 14:14 Dose: 70 mls/hr Documented by: Sodium Chloride () 250 mls @ 15 mls/hr IV .[id number] PRN PRN Reason: Saline Flush Sodium Chloride () 250 mls @ 15 mls/hr IV .[id number] PRN PRN Reason: Additional IVPB Infusion Ketorolac Tromethamine (Toradol) 15 mg IV Q6H PRN PRN PRN Reason: Pain Score 1-10/10 Metformin HCl (Glucophage) 1,000 mg PO BIDCM [facility] Morphine Sulfate () 2 - 4 mg IV Q2H PRN PRN PRN Reason: Pain Score 1-10/10 Last Admin: 02/22/19 14:15 Dose: 2 mg Documented by: Morphine Sulfate () 2 - 4 mg IV Q2H PRN PRN PRN Reason: Pain Score 1-10/10 Non-Formulary Medication (Doxycycline Hyclate) 100 mg PO BID [facility] Ondansetron HCl (Zofran) 4 mg IV Q8H PRN PRN PRN Reason: NAUSEA Pioglitazone HCl (Actos) 45 mg PO DAILY [facility] Ramipril (Altace) 10 mg PO DAILY [facility] Sertraline HCl (Zoloft) 50 mg PO DAILY [facility] Sodium Chloride () 10 - 40 ml IV UD PRN PRN Reason: SALINE FLUSH Code Visit Office Visits / Consults: [id number] IP Consult L5
[2019-02-22] MEDS: Lactated Ringers 1,000 ML 70 ML IV (14:14)
[2019-02-22] MEDS: Morphine 2 MG/ML Syringe IV (14:15)
[2019-02-22] MEDS: metFORMIN HCl 1,000 MG Tablet 1000 MG PO (18:22)
[2019-02-22 19:11] LABS: Bedside Glucose 144 mg/dL (70-110)
[2019-02-22] MEDS: Atorvastatin Calcium 10 MG Tablet PO (21:51)
[2019-02-22 21:55] LABS: Bedside Glucose 133 mg/dL (70-110)
[2019-02-23] VITALS (7 sets, daily range): BP systolic 131–148; BP diastolic 70–93; PULSE 79–89; RESP 16–18; TEMP 37.1–37.4; O2SAT 93–100
[2019-02-23] MEDS: Ketorolac 15 MG/ML Vial IV ×2 (00:19→08:46)
[2019-02-23] MEDS: Lactated Ringers 1,000 ML 70 ML IV (04:43)
[2019-02-23] MEDS: Enoxaparin 40 MG/0.4 ML Syringe SC (04:43)
--- NOTE | 2019-02-23 05:23 | PCM.PN.SRG ---
Subjective: Burping, no flatus Pain tolerable Intolerant to percocet and also has not faired well with vicodin - Physical Exam Vitals/I&O's: Vital Signs Temp Pulse Resp BP Pulse Ox 98.8 F 79 16 144/79 H 100 02/23/19 02:45 02/23/19 02:45 02/23/19 02:45 02/23/19 02:45 02/23/19 02:45 Oxygen Flow Rate (L/min) 2 Oxygen Delivery Method Room Air Weight: 246 lb 14.684 oz Body Mass Index (BMI) 38.7 Finger Stick Blood Glucose 252 Intake and Output for Last 24 Hours 02/21/19 02/22/19 02/23/19 23:59 23:59 23:59 Intake Total 951.67 / 1351.67 1283.17 / 1283.17 Output Total 730 / 1180 450 / 450 Balance 221.67 / 171.67 833.17 / 833.17 General: Alert, Oriented x3, Cooperative, No apparent distress Lungs: Clear to auscultation Abdomen: Soft, Hypoactive Bowel Sounds, Distended Laboratory Results 02/22/19 06:13: POC Glucose 170 H 02/22/19 11:24: POC Glucose 252 H 02/22/19 18:20: POC Glucose 144 H 02/22/19 21:49: POC Glucose 133 H Current Medications Albuterol Sulfate (Ventolin Aerosols) 2.5 mg INHALATION Q4H PRN PRN Reason: SOB/WHEEZING Atorvastatin Calcium (Lipitor) 10 mg PO QHS [facility] Last Admin: 02/22/19 21:51 Dose: 10 mg Documented by: Dextrose (D50w Syringe) 0 gm IV X1 PRN; Protocol PRN Reason: Hypoglycemia Enoxaparin Sodium (Lovenox) 40 mg SC DAILY@0600 [facility] Last Admin: 02/23/19 04:43 Dose: 40 mg Documented by: Glip[facility]) [facility] Glucagon () 1 mg IM .X1 PRN PRN Reason: Hypoglycemia Hydrochlorothiazide () 12.5 mg PO DAILY [facility] Lactated Ringer's () 1,000 mls @ 70 mls/hr IV .[id number] [facility] Last Admin: 02/23/19 04:43 Dose: 70 mls/hr Documented by: Sodium Chloride () 250 mls @ 15 mls/hr IV .[id number] PRN PRN Reason: Saline Flush Insulin Human Lispro (Humalog Kwikpen (Bkc)) 0 unit SC ACHS [facility]; Protocol Last Admin: 02/22/19 21:52 Dose: Not Given Documented by: Ketorolac Tromethamine (Toradol) 15 mg IV Q6H PRN PRN PRN Reason: Pain Score 1-10/10 Last Admin: 02/23/19 00:19 Dose: 15 mg Documented by: Metformin HCl (Glucophage) [facility] Last Admin: 02/22/19 18:22 Dose: 1,000 mg Documented by: Morphine Sulfate () 2 - 4 mg IV Q2H PRN PRN PRN Reason: Pain Score 1-10/10 Last Admin: 02/22/19 14:15 Dose: 2 mg Documented by: Morphine Sulfate () 2 - 4 mg IV Q2H PRN PRN PRN Reason: Pain Score 1-10/10 Ondansetron HCl (Zofran) 4 mg IV Q8H PRN PRN PRN Reason: NAUSEA Pioglitazone HCl (Actos) 45 mg PO DAILY [facility] Ramipril (Altace) 10 mg PO DAILY [facility] Sertraline HCl (Zoloft) 50 mg PO DAILY [facility] Sodium Chloride () 10 - 40 ml IV UD PRN PRN Reason: SALINE FLUSH Medical Necessity - Tobacco Use Smoking Status: Never smoker Tobacco Use: Non-smoker Assessment/Plan All Active Problems (Last Reviewed 02/22/19 @ 14:49 by Carlos Moise MD) Incisional hernia (Acute) Recurrent incisional hernia with incarceration (Acute) Pt lying in bed Still on oxygen Needs to mobilize [facility] later today
[2019-02-23] MEDS: Lactulose 20 GM/30 ML UDC PO (05:52)
[2019-02-23 06:10] LABS: Absolute Lymphocyte Count 1.42 X10^3/uL (0.83-4.51); Absolute Neutrophil Count 4.8 X10^3/uL (2.0-7.7); Basophil# 0.03 X10^3/uL; Basophil% 0.4 % (0-1); Eosinophil# 0.03 X10^3/uL; Eosinophils% 0.4 % (0-5); Hematocrit 39.6 % (37-47); Hemoglobin 12.3 g/dL (12.0-15.0); Lymphocyte # 1.42 X10^3/ul (4.0); Lymphocyte % 21.2 % (19-41); Mean Corp Hgb Conc 31.1 g/dL (32-36); Mean Corpuscular Hgb 30.1 pg (27.0-32.0); Mean Corpuscular Volume 96.8 fL (81-99); Mean Platelet Vol. 10.6 fl (6.2-12.0); Monocyte# 0.42 X10^3/uL; Monocyte% 6.3 % (0-10); NRBC Flagged by Analyzer 0 % (0-5); Neutrophil # 4.78 X10^3/uL (2.7-7.7); Neutrophil % 71.4 % (47-70); Platelet Count 129 K/mm3 (150-450); RBC Distribution Width CV 13.6 % (11.6-14.6); RBC Distribution Width SD 48.7 fl (35.1-43.9); Red Blood Count 4.09 M/mm3 (4.2-5.4); White Blood Count 6.7 K/mm3 (4.4-11.0)
[2019-02-23 06:16] LABS: Bedside Glucose 112 mg/dL (70-110)
[2019-02-23 06:43] LABS: Anion Gap 5 (5-15); BUN 9 mg/dL (7-18); BUN/Creat Ratio 10.8 RATIO (10-20); Calcium,Total 8.1 mg/dL (8.5-10.1); Chloride 106 mmol/L (98-107); Creatinine, Serum 0.83 mg/dL (0.55-1.02); EST Glomerular Filtration Rate 75 mL/min (>60); Est Glom Filt Rate - Afr Amer 91 mL/min (>60); Estimated Creatinine Clearance 72.72 ml/min; Glucose 116 mg/dL (74-106); Magnesium 1.3 mg/dL (1.6-2.6); Potassium 3.8 mmol/L (3.5-5.1); Sodium Level 141 mmol/L (136-145)
--- NOTE | 2019-02-23 08:18 | PCM.PN.HOSP ---
Reason for Visit: Follow-up medical management following ventral hernia repair Subjective: Receive day 1 following ventral hernia repair. Seen complains of persistent cough Robitussin-DM ordered for symptom management Diagnostic data reviewed significant for magnesium of 1.3 repletion initiated Objective: GENERAL: cooperative HEENT: Atraumatic; EYES; Anicteric, Normal Conjunctiva NECK; supple, normal thyroid, RESPIRATORY: Diminished to auscultation CARDIOVASCULAR: Regular S1 S2, GI: soft, normoactive bowel sounds, binder in place : No Renal angle tenderness; EXTREMITIES: No edema, no clubbing, MUSCULOSKELETAL: no muscle waisting NEURO: Awake; no lateralizing signs. SKIN: No Rash PSYCH; Flat affect Vitals/I&O's: Vital Signs Temp Pulse Resp BP Pulse Ox 98.8 F 79 16 144/79 H 100 02/23/19 02:45 02/23/19 02:45 02/23/19 02:45 02/23/19 02:45 02/23/19 02:45 Oxygen Flow Rate (L/min) 2 Oxygen Delivery Method Room Air Weight: 112 kg Body Mass Index (BMI) 38.7 Finger Stick Blood Glucose 252 Intake and Output for Last 24 Hours 02/21/19 02/22/19 02/23/19 23:59 23:59 23:59 Intake Total 951.67 / 1351.67 1683.17 / 1683.17 Output Total 730 / 1180 900 / 900 Balance 221.67 / 171.67 783.17 / 783.17 Laboratory Results 02/22/19 11:24: POC Glucose 252 H 02/22/19 18:20: POC Glucose 144 H 02/22/19 21:49: POC Glucose 133 H 02/23/19 05:30: WBC 6.7, RBC 4.09 L, Hgb 12.3, Hct 39.6, MCV 96.8, MCH 30.1, MCHC 31.1 L, RDW Std Deviation 48.7 H, RDW Coeff of Charlie 13.6, Plt Count 129 L, MPV 10.6, Immature Gran % (Auto) 0.300, Neut % (Auto) 71.4 H, Lymph % (Auto) 21.2, Kleberg % (Auto) 6.3, Eos % (Auto) 0.4, Baso % (Auto) 0.4, Absolute Neuts (auto) 4.8, Absolute Lymphs (auto) 1.42, Nucleated RBC % 0 02/23/19 05:30: Sodium 141, Potassium 3.8, Chloride 106, Carbon Dioxide 30.0, Anion Gap 5, BUN 9, Creatinine 0.83, Estim Creat Clear Calc 72.72, Est GFR (MDRD) Af Amer 91, Est GFR (MDRD) Non-Af 75, BUN/Creatinine Ratio 10.8, Glucose 116 H, Calcium 8.1 L, Magnesium 1.3 L 02/23/19 06:08: POC Glucose 112 H Current Medications Albuterol Sulfate (Ventolin Aerosols) 2.5 mg INHALATION Q4H PRN PRN Reason: SOB/WHEEZING Atorvastatin Calcium (Lipitor) 10 mg PO QHS [facility] Last Admin: 02/22/19 21:51 Dose: 10 mg Documented by: Dextrose (D50w Syringe) 0 gm IV X1 PRN; Protocol PRN Reason: Hypoglycemia Enoxaparin Sodium (Lovenox) 40 mg SC DAILY@0600 [facility] Last Admin: 02/23/19 04:43 Dose: 40 mg Documented by: Glip[facility]) [facility] Glucagon () 1 mg IM .X1 PRN PRN Reason: Hypoglycemia Hydrochlorothiazide () 12.5 mg PO DAILY [facility] Lactated Ringer's () 1,000 mls @ 30 mls/hr IV .[id number] [facility] Last Admin: 02/23/19 04:43 Dose: 70 mls/hr Documented by: Sodium Chloride () 250 mls @ 15 mls/hr IV .[id number] PRN PRN Reason: Saline Flush Insulin Human Lispro (Humalog Kwikpen (Bkc)) [address] [facility]; Protocol Last Admin: 02/23/19 06:09 Dose: Not Given Documented by: Ketorolac Tromethamine (Toradol) 15 mg IV Q6H PRN PRN PRN Reason: Pain Score 1-10/10 Last Admin: 02/23/19 00:19 Dose: 15 mg Documented by: Metformin HCl (Glucophage) [facility] Last Admin: 02/22/19 18:22 Dose: 1,000 mg Documented by: Morphine Sulfate () 2 - 4 mg IV Q2H PRN PRN PRN Reason: Pain Score 1-10/10 Last Admin: 02/22/19 14:15 Dose: 2 mg Documented by: Morphine Sulfate () 2 - 4 mg IV Q2H PRN PRN PRN Reason: Pain Score 1-10/10 Ondansetron HCl (Zofran) 4 mg IV Q8H PRN PRN PRN Reason: NAUSEA Pioglitazone HCl (Actos) 45 mg PO DAILY [facility] Ramipril (Altace) 10 mg PO DAILY [facility] Sertraline HCl (Zoloft) 50 mg PO DAILY [facility] Sodium Chloride () 10 - 40 ml IV UD PRN PRN Reason: SALINE FLUSH Medical Necessity - Tobacco Use Smoking Status: Never smoker Tobacco Use: Non-smoker Assessment/Plan All Active Problems (Last Reviewed 02/22/19 @ 14:49 by Carlos Moise MD) Incisional hernia (Acute) Recurrent incisional hernia with incarceration (Acute) The patient is a 58 year old F who was admitted by Dr. Salinas on account of multiple ventral incisional hernias with recurrent incarcerated hernia in the epigastrium. Patient underwent laparoscopic ventral incisional hernia repair with placement of 2 pieces of ventral light mesh. The hospitalist service was consulted postoperatively by Dr. Salinas to assist with management of patient medical comorbidities. 1. Status post laparoscopic ventral incisional hernia repair with placement of 2 pieces of ventral light mesh ~ On account of multiple ventral incisional hernias with recurrent incarcerated hernia in the epigastrium Dr. Solomon Salinas on 02/22/2019 2. Hypertension ~ blood pressure controlled, home medications continued with dose adjustment as needed 3. Dyslipidemia ~patient is on statin therapy, continued at home dose 4. Diabetes mellitus type II ~Did continue patient oral hypoglycemic agents in addition to Accu-Cheks a.c. and at bedtime and covered with sliding scale insulin 5. Morbid obesity With BMI of 32 weight loss advised 6. DVT prophylaxis ~ on enoxaparin 7. Hypomagnesemia ?Repleted per protocol Active Medications Albuterol Sulfate (Ventolin Aerosols) 2.5 mg INHALATION Q4H PRN PRN Reason: SOB/WHEEZING Atorvastatin Calcium (Lipitor) 10 mg PO QHS [facility] Enoxaparin Sodium (Lovenox) 40 mg SC DAILY@0600 [facility] Glipizide (Glucotrol) 10 mg PO ONCE [facility] Hydrochlorothiazide () 12.5 mg PO DAILY [facility] Cefazolin Sodium 2 gm/ Sodium (Chloride) 110 mls @ 150 mls/hr IV X1 ONE Stop: 02/22/19 15:43 Lactated Ringer's () 1,000 mls @ 70 mls/hr IV .[id number] [facility] Last Admin: 02/22/19 14:14 Dose: 70 mls/hr Documented by: Sodium Chloride () 250 mls @ 15 mls/hr IV .[id number] PRN PRN Reason: Saline Flush Sodium Chloride () 250 mls @ 15 mls/hr IV .[id number] PRN PRN Reason: Additional IVPB Infusion Ketorolac Tromethamine (Toradol) 15 mg IV Q6H PRN PRN PRN Reason: Pain Score 1-10/10 Metformin [facility] (Glucophage) [facility] Morphine Sulfate () 2 - 4 mg IV Q2H PRN PRN PRN Reason: Pain Score 1-10/10 Last Admin: 02/22/19 14:15 Dose: 2 mg Documented by: Morphine Sulfate () 2 - 4 mg IV Q2H PRN PRN PRN Reason: Pain Score 1-10/10 Non-Formulary Medication (Doxycycline Hyclate) 100 mg PO BID [facility] Ondansetron HCl (Zofran) 4 mg IV Q8H PRN PRN PRN Reason: NAUSEA Pioglitazone HCl (Actos) 45 mg PO DAILY [facility] Ramipril (Altace) 10 mg PO DAILY [facility] Sertraline HCl (Zoloft) 50 mg PO DAILY [facility] Sodium Chloride () 10 - 40 ml IV UD PRN PRN Reason: SALINE FLUSH Code Visit Inpatient E&M: 13609 Subs Hosp L2
[2019-02-23] MEDS: 0.9% Saline Lock 10 ML Syringe IV (08:47)
[2019-02-23] MEDS: glipiZIDE 10 MG Tablet PO (08:48)
[2019-02-23] MEDS: Ramipril 10 MG Capsule PO (08:48)
[2019-02-23] MEDS: metFORMIN HCl 1,000 MG Tablet 1000 MG PO (08:48)
[2019-02-23] MEDS: Pioglitazone Hydrochloride 45 MG Tablet PO (08:48)
[2019-02-23] MEDS: hydroCHLOROthiazide 12.5mg 12.5 MG PO (08:49)
[2019-02-23] MEDS: Sertraline 50 MG Tablet PO (08:51)
[2019-02-23] MEDS: guaiFENesin Dm 10 ML UDC PO (08:57)
[2019-02-23 11:40] LABS: Bedside Glucose 146 mg/dL (70-110)
--- NOTE | 2019-02-23 13:42 | PCM.PN.BLA ---
Progress Note Progress report from nursing suggest that the patient has had flatus. Pain controlled at only a level of 2, tolerating light diet, Appears to have met criteria for discharge STROKE Vital Signs/Narrative: Vital Signs Temp Pulse Resp BP Pulse Ox 02/23/19 13:32 99.3 F H 89 18 131/70 H 95 02/23/19 12:15 94 02/23/19 10:42 93 02/23/19 09:48 94
== END 2019-02-23 15:01 | disposition home or self-care (01) ==
LOC: SDC 11:28 → MS3 11:28
PROVIDERS: Admitting Provider Surgery; Family Provider Nurse Practitioner Family; PCP Nurse Practitioner Family; Referring Provider Surgery; Visit Provider Surgery
PROC: 0WQF4ZZ Repair Abdominal Wall, Percutaneous Endoscopic Approach (ICD-10-PCS; CPT 47000; principal; 2019-02-22 06:55)
DX: K43.0 Incisional hernia with obstruction, without gangrene (principal); K76.0 Fatty (change of) liver, not elsewhere classified; K74.60 Unspecified cirrhosis of liver; E66.01 Morbid (severe) obesity due to excess calories; E11.9 Type 2 diabetes mellitus without complications; M19.90 Unspecified osteoarthritis, unspecified site; F41.8 Other specified anxiety disorders; I10 Essential (primary) hypertension; L98.8 Other specified disorders of the skin and subcutaneous tissue; E78.5 Hyperlipidemia, unspecified; E83.42 Hypomagnesemia; Z79.899 Other long term (current) drug therapy; Z79.84 Long term (current) use of oral hypoglycemic drugs; Z71.3 Dietary counseling and surveillance; Z68.41 Body mass index [BMI] 40.0-44.9, adult; Z85.828 Personal history of other malignant neoplasm of skin
CPT/HCPCS: 00752; 47000; 49657; 36415; 80048; 82947; 82962; 83735; 85025; 85027; 88302; 88307; 88313; 93005; 96365; 96372; 96375; 96376; 99218; J7120; A4216; C1781; G0378; G0379; J2405; J3490